=== PATIENT | male | born 1955 | race Caucasian/White ===

== ENCOUNTER → 2016-07-21 | Outpatient (CLI) | payer BC | LOC: COL.RAD 08:50 | DX: R79.89 Other specified abnormal findings of blood chemistry (principal) ==

== ENCOUNTER 2017-10-07 07:47 | Day surgery (SDC) | payer BC ==
[2017-10-07] VITALS (11 sets, daily range): BP systolic 125–151; BP diastolic 70–83; PULSE 69–83; TEMP 98–98.3
[~2017-10-07] VITALS: Ht 177.8 cm; Wt 127.4 kg
[2017-10-07] MEDS ORDERED: LASIX 40MG TABL40 MG PO (09:08)
[2017-10-07] MEDS ORDERED: LOFIBRA160 MG PO (09:08)
[2017-10-07] MEDS ORDERED: ZESTRIL 20MG TA20 MG PO (09:09)
[2017-10-07] MEDS ORDERED: PRILOSEC 20MG20 MG PO (09:10)
[2017-10-07] MEDS ORDERED: ASPIRIN 81M81 MG/TA2 PO (09:11)
[2017-10-07] MEDS ORDERED: COREG 25MG25 MG/TAB PO (09:13)
[2017-10-07] MEDS ORDERED: K-DUR20 MEQ PO (09:15)
[2017-10-07] MEDS ORDERED: ZYRTEC 10MG10 MG PO (09:15)
[2017-10-07] MEDS ORDERED: GLUCOPHAGE500 MG/TAB PO (09:17)
[2017-10-07 09:50] LABS: BASO # 0.1 (0.0-0.2); BASO % 1.2 % (0.0-2.0); EOS # 0.3 (0.0-0.7); EOS % 3.9 % (0-4.0); GRAN # 4.2 (1.4-6.5); GRAN % 62.8 % (42.2-75.2); HEMATOCRIT 40.4 % (42.0-52.0); HEMOGLOBIN 13.8 g/dl (13.5-18.0); LYMPH # 1.4 (1.2-3.4); LYMPH % 20.8 % (20.0-51.0); MEAN CELL VOLUME 97 fl (80.0-100.0); MEAN CORPUSCULAR HEMOGLOBIN 33 pg (27.0-31.0); MEAN CORPUSCULAR HGB CONC 34 g/dl (33.0-37.0); MEAN PLATELET VOLUME 11.2 fl (7.4-10.4); MONO # 0.7 (0.1-0.6); MONO % 10.4 % (1.7-9.3); PLATELET COUNT 200 K/mm3 (130-400); RED BLOOD COUNT 4.18 M/mm3 (4.20-5.60); REDCELL DISTRIBUTION WIDTH-CV 12.5 % (11.5-14.5)
[2017-10-08 04:00] VITALS: BP 140/80; PULSE 84; TEMP 97.7
[2017-10-08 11:00] VITALS: BP 146/80; PULSE 86; TEMP 98.4
[2017-10-08 16:00] VITALS: BP 154/42; PULSE 56; TEMP 99.1
== END 2017-10-08 15:00 | disposition home or self-care (01) ==
LOC: SDCO 07:47 → SURG 11:25 → SDCO 10-08 15:00
PROVIDERS: Urology
DX: C67.5 Malignant neoplasm of bladder neck (principal); N47.1 Phimosis; N35.9 Urethral stricture, unspecified; Z95.0 Presence of cardiac pacemaker; Z79.82 Long term (current) use of aspirin
CPT/HCPCS: OP; C1769; J0690; J1100; J1885; J2405; J2704; J2765; J3010; J7030; J9280

== ENCOUNTER → 2017-11-21 | Outpatient (CLI) | payer BC ==
[~2017-11-21] MED LIST: ASPIRIN 81M81 MG/TA2 PO; COREG 25MG25 MG/TAB PO; GLUCOPHAGE500 MG/TAB PO; K-DUR20 MEQ PO; LASIX 40MG TABL40 MG PO; LOFIBRA160 MG PO; PRILOSEC 20MG20 MG PO; ZESTRIL 20MG TA20 MG PO; ZYRTEC 10MG10 MG PO
== END ==
LOC: SUN.DIA 08:35
DX: E11.9 Type 2 diabetes mellitus without complications (principal); E78.5 Hyperlipidemia, unspecified; I10 Essential (primary) hypertension; E66.9 Obesity, unspecified; Z71.3 Dietary counseling and surveillance
CPT/HCPCS: G0108

== ENCOUNTER → 2017-12-01 | Outpatient (CLI) | payer BC | LOC: SUN.DIA 09:30 | DX: E11.9 Type 2 diabetes mellitus without complications (principal); E78.5 Hyperlipidemia, unspecified; I10 Essential (primary) hypertension; E66.9 Obesity, unspecified; Z71.3 Dietary counseling and surveillance | CPT/HCPCS: G0109 ==

== ENCOUNTER → 2017-12-07 | Outpatient (CLI) | payer BC | LOC: SUN.DIA 10:07 | DX: E11.9 Type 2 diabetes mellitus without complications (principal); E78.5 Hyperlipidemia, unspecified; I10 Essential (primary) hypertension; E66.9 Obesity, unspecified; Z71.3 Dietary counseling and surveillance | CPT/HCPCS: G0108 ==

== ENCOUNTER → 2017-12-08 | Outpatient (CLI) | payer BC | LOC: SUN.DIA 09:02 | DX: E11.9 Type 2 diabetes mellitus without complications (principal); E78.5 Hyperlipidemia, unspecified; I10 Essential (primary) hypertension; E66.9 Obesity, unspecified; Z71.3 Dietary counseling and surveillance | CPT/HCPCS: G0109 ==

== ENCOUNTER → 2017-12-29 | Outpatient (CLI) | payer BC | LOC: SUN.DIA 09:30 | DX: E11.9 Type 2 diabetes mellitus without complications (principal); E78.5 Hyperlipidemia, unspecified; I10 Essential (primary) hypertension | CPT/HCPCS: G0109 ==

== ENCOUNTER → 2018-01-31 | Outpatient (CLI) | payer BC | LOC: SUN.DIA 10:36 | DX: E11.9 Type 2 diabetes mellitus without complications (principal); E78.5 Hyperlipidemia, unspecified; I10 Essential (primary) hypertension; E66.9 Obesity, unspecified | CPT/HCPCS: G0108 ==

== ENCOUNTER → 2018-03-09 | Outpatient (CLI) | payer BC | LOC: SUN.DIA 12:32 | DX: E11.9 Type 2 diabetes mellitus without complications (principal); E78.5 Hyperlipidemia, unspecified; I10 Essential (primary) hypertension; E66.9 Obesity, unspecified | CPT/HCPCS: G0108 ==

== ENCOUNTER → 2018-03-29 | Outpatient (CLI) | payer BC | LOC: SUN.DIA 14:26 | DX: E11.9 Type 2 diabetes mellitus without complications (principal); E78.5 Hyperlipidemia, unspecified; I10 Essential (primary) hypertension; E66.9 Obesity, unspecified | CPT/HCPCS: G0109 ==

== ENCOUNTER → 2018-06-20 | Outpatient (CLI) | payer BC | LOC: SUN.DIA 13:10 | DX: E11.9 Type 2 diabetes mellitus without complications (principal); E78.5 Hyperlipidemia, unspecified; I10 Essential (primary) hypertension; E66.9 Obesity, unspecified | CPT/HCPCS: G0108 ==

== ENCOUNTER → 2018-12-19 | Outpatient (CLI) | payer BC | LOC: DIA.ED 13:30 → SUN.DIA 15:47 | DX: E11.9 Type 2 diabetes mellitus without complications (principal); E78.5 Hyperlipidemia, unspecified; I10 Essential (primary) hypertension; E66.9 Obesity, unspecified | CPT/HCPCS: G0108 ==

== ENCOUNTER → 2019-07-23 | Outpatient (CLI) | payer BC | LOC: DIA.ED 14:28 | DX: E11.9 Type 2 diabetes mellitus without complications (principal); Z79.84 Long term (current) use of oral hypoglycemic drugs; E66.8 Other obesity; E78.5 Hyperlipidemia, unspecified; I10 Essential (primary) hypertension | CPT/HCPCS: G0108 ==

== ENCOUNTER 2020-09-16 08:11 | Day surgery (SDC) | payer BC ==
[~2020-09-16] VITALS: Ht 177.8 cm; Wt 131.1 kg
[2020-09-16] MEDS ORDERED: COREG 25MG25 MG/TAB PO (09:14)
[2020-09-16] MEDS ORDERED: LEXAPRO 10MG10 MG PO (09:15)
[2020-09-16 09:17] VITALS: BP 151/87; PULSE 92; TEMP 97.5
[2020-09-16] MEDS ORDERED: NORCO 325 MG-51 TAB PO (11:24)
[2020-09-16 11:26] VITALS: TEMP 97.4
[2020-09-16 11:53] VITALS: BP 113/87; PULSE 83
--- NOTE | 2020-09-16 11:53 | NUR ---
Patient returns to room 3 per cart from PACU accompanied by Katalina LAIRD and is awake and alert. Exofin dressing covering incision on the right lower quadrant. Wound edges well approximated. IV fluids infusing. Temp 97.8 and room air sats 94%. Given water and jello. Siderails up x2 and call light in reach.
[2020-09-16 12:08] VITALS: BP 130/61; PULSE 78
--- NOTE | 2020-09-16 12:08 | NUR ---
Resting and continues to sip on water and eat jello.
[2020-09-16 12:23] VITALS: BP 127/62; PULSE 78
--- NOTE | 2020-09-16 12:23 | NUR ---
Eating toast and drinking orange juice. Room air sats 96%. Denies pain or nausea.
[2020-09-16 12:48] VITALS: BP 134/56; PULSE 82
--- NOTE | 2020-09-16 12:48 | NUR ---
Tolerates snack and denies pain or nausea.
--- NOTE | 2020-09-16 12:55 | NUR ---
IV discontinued and site is free of redness. Patient dresses self. Tolerates activity well.
--- NOTE | 2020-09-16 13:17 | NUR ---
Dismissal instructions given and voices understanding of these. Provided follow up date and time.
--- NOTE | 2020-09-16 13:25 | NUR ---
Patient dismissed to home driven by friend. Taken to the front door per wheelchair and assisted into vehicle by Shahbaz LAIRD with dismissal instructions in hand.
== END 2020-09-16 13:25 | disposition home or self-care (01) ==
LOC: SDCO 08:11
DX: K40.30 Unilateral inguinal hernia, with obstruction, without gangrene, not specified as recurrent (principal); J30.1 Allergic rhinitis due to pollen; G47.33 Obstructive sleep apnea (adult) (pediatric); K21.9 Gastro-esophageal reflux disease without esophagitis; E11.9 Type 2 diabetes mellitus without complications; I25.2 Old myocardial infarction; I25.10 Atherosclerotic heart disease of native coronary artery without angina pectoris; I50.9 Heart failure, unspecified; I11.0 Hypertensive heart disease with heart failure; E78.5 Hyperlipidemia, unspecified; Z85.51 Personal history of malignant neoplasm of bladder; Z20.822 Contact with and (suspected) exposure to COVID-19; Z79.82 Long term (current) use of aspirin; Z79.899 Other long term (current) drug therapy; Z95.1 Presence of aortocoronary bypass graft; Z99.89 Dependence on other enabling machines and devices; Z85.46 Personal history of malignant neoplasm of prostate; Z79.84 Long term (current) use of oral hypoglycemic drugs
CPT/HCPCS: C1781; J0690; J1885; J2250; J2405; J2704; J2765; J3010; J7030